=== PATIENT | female | born 1975 | race Caucasian/White ===

== ENCOUNTER 2019-04-19 18:00 | Emergency (ER) | payer MEDICAID ==
[~2019-04-19] VITALS: Ht 165.1 cm; Wt 48.0 kg
[2019-04-19] MEDS ORDERED: CHLO25CA10 PO (19:13)
[2019-04-19] MEDS ORDERED: chlordiazePOXIDE 25mg capsule PO ONE ×2 (19:15→20:50)
--- NOTE | 2019-04-19 19:23 | NUR ---
shortly after po med administration, pt experienced bout of emesis with undigested tablets visible. Dr Grissom notified. New orders for NS, IV Ativan 2mg and IV Zofran 4mg received.
[2019-04-19] MEDS ORDERED: ondansetron/PF 4mg/2ml inj IV ONE (19:25)
[2019-04-19] MEDS ORDERED: LORazepam 2 mg/ml vial IV ONE (19:25)
[2019-04-19] MEDS ORDERED: normal saline 1000ml 1,000 ML IV ONE (19:25)
--- NOTE | 2019-04-19 20:34 | NUR ---
[facility]. PER SONALI, PT CAN BE SENT OVER ~ 2019 THEY HAVE AN AA MEETING GOING ON UNTIL 1999. SONALI ASKED IF [facility] WAS PAYING FOR PT. RESPONSE WAS NEGATIVE, THE PLACEMENT IS BASED ON [facility]'S OFFER TO [facility]. PT GAIT TESTED AND ABLE TO AMBULATE ON HER OWN. PRIMARY MODE PERRY AND PELON HERRMANN NOTIFIED. Addendum: 04/19/19 at 2056 by BONY PLACEMENT OF 1999 SHOULD HAVE BEEN 2119.
--- NOTE | 2019-04-19 20:46 | NUR ---
DISCUSSED PT STATUS AND DC POC TO EMPIRE WITH DR WEBER. NEW ORDER FOR LIBRIUM 50MG RECEIVED.
--- NOTE | 2019-04-19 20:48 | NUR ---
[facility] WILL ARRIVE AT 2119 TO TAKE PT TO [facility]
[2019-04-19 21:20] VITALS: BP 114/73
== END 2019-04-19 21:40 | disposition home or self-care (01) ==
LOC: ER 18:01
DX: F10.239 Alcohol dependence with withdrawal, unspecified (principal); H40.9 Unspecified glaucoma; F17.210 Nicotine dependence, cigarettes, uncomplicated; Z79.899 Other long term (current) drug therapy
CPT/HCPCS: 96374; 96375; 99283; J2060; J2405; J7030